=== PATIENT | female | born 1955 | race Caucasian/White ===

== ENCOUNTER 2016-11-07 21:56 | Emergency (ER) | payer OTHER ==
[~2016-11-07] VITALS: Ht 167.6 cm; Wt 53.2 kg
[~2016-11-07 21:56] MED LIST: HYDROCODONE-AP1 EAC8 PO; [UNRECOGNIZED DRUG - OTHER] PO
[2016-11-07 23:41] LABS: MCH 30.2 PG (29.0-34.0); MCHC 33.1 G/DL (30.0-36.0); MCV 91.4 FL (83-99); MEAN PLAT.VOLUME 9.9 uM^3 (9.5-12.4); PLATELET COUNT 242 K/uL (156-360); RBC DIS.WIDTH-CV 13.4 % (11.8-14.6); RBC DIS.WIDTH-SD 45.3 % (39-53); RED BLOOD COUNT 3.94 M/uL (3.80-5.20); WHITE BLOOD COUNT 9.2 K/uL (4.1-10.2)
[2016-11-07 23:55] LABS: CHLORIDE 103 mEq/L (99-109); POTASSIUM 3.9 mEq/L (3.7-5.4); SODIUM 135 mEq/L (136-147)
[2016-11-07 23:57] LABS: GLUCOSE 101 mg/dL (70-99)
[2016-11-07 23:58] LABS: ANION GAP 12 MEQ/L (2-14)
[2016-11-08 00:01] LABS: GFR ESTIMATE (CALCULATED) > 59 mL/min/
[2016-11-08 00:02] LABS: UREA NITROGEN (BUN) 14 mg/dL (9-23)
[2016-11-08 01:39] VITALS: BP 122/71
== END 2016-11-08 01:41 | disposition home or self-care (01) ==
LOC: EME 21:56
PROVIDERS: Emergency Medicine
DX: R51 Headache (principal); Z98.890 Other specified postprocedural states; Z88.2 Allergy status to sulfonamides
CPT/HCPCS: 70450; 80048; 85027; 99281; 99284; J0780; J1200; J1885; J7030